=== PATIENT | male | born 1960 | race Caucasian/White ===

== ENCOUNTER 2017-11-25 19:03 | Inpatient (IN) | payer OTHER ==
--- NOTE | 2017-11-25 20:48 | HP ---
CIWA Score - CIWA Score Nausea/Vomitin Muscle Tremors: 2 Anxiety: 2 Agitation: 2 Paroxysmal Sweats: 1-Minimal Palms Moist Orientation: 1-Uncertain about Date Tacttile Disturbances: 1-Very Mild Itch/Numbness Auditory Disturbances: 1-Very Mild Visual Disturbances: 1-Very Mild Sensitivity Headache: 1-Very Mild CIWA-Ar Total Score: 14 Admission ROS BHS - HPI Chief Complaint: WITHDRAWAL SYMPTOMS Allergies/Adverse Reactions: Allergies Allergy/AdvReac Type Severity Reaction Status Date / Time No Known Allergies Allergy Verified 11/25/17 12:52 History of Present Illness: 57 Y.O. MAN WITH AN EXTENSIVE HISTORY OF ALCOHOL DEPENDENCE IS HERE SEEKING DETOX. PT. WAS EVALUATED AT THE ER EARLIER IN THE DAY FOR LEFT ANKLE SWELLING; HE WAS CLEARED TO COMPLETE DETOX. PT. HAS A BRACE TO HIS LEFT ANKLE AND IS USING A CANE FOR AMBULATION. Exam Limitations: Physical Impairment (USING A CANE FOR AMBULATION) - Ebola screening Have you traveled outside of the country in the last 21 days: No (N) Have you had contact with anyone from an Ebola affected area: No Do you have a fever: No - Review of Systems Constitutional: Chills, Loss of Appetite, Unintentional Wgt. Loss EENT: reports: Blurred Vision Respiratory: reports: Cough Cardiac: reports: No Symptoms Reported GI: reports: Diarrhea, Abdominal cramping : reports: No Symptoms Reported Musculoskeletal: reports: Other (LEFT FOOT PAIN) Neuro: reports: Headache Endocrine: reports: No Symptoms Reported Hematology: reports: No Symptoms Reported Psychiatric: reports: Depressed Other Systems: Reviewed and Negative Patient History - Patient Medical History Hx Anemia: No Hx Asthma: No Hx Chronic Obstructive Pulmonary Disease (COPD): No Hx Cancer: Yes (Throat Ca. Not on medication) Hx Cardiac Disorders: No Hx Congestive Heart Failure: No Hx Hypertension: Yes (non compliant with meds.) Hx Hypercholesterolemia: No Hx Pacemaker: No HX Cerebrovascular Accident: No Hx Seizures: No Hx Dementia: No Hx Diabetes: No Hx Gastrointestinal Disorders: Yes Hx Liver Disease: No Hx Genitourinary Disorders: No Hx Sexually Transmitted Disorders: No Hx Renal Disease (ESRD): No Hx Human Immunodeficiency Virus (HIV): No (Never tested) Hx Hepatitis C: No Hx Depression: Yes Hx Suicide Attempt: No Hx Bipolar Disorder: No Hx Schizophrenia: No - Patient Surgical History Past Surgical History: Yes Hx Neurologic Surgery: No Hx Cataract Extraction: No Hx Cardiac Surgery: No Hx Lung Surgery: No Hx Breast Surgery: No Hx Breast Biopsy: No Hx Abdominal Surgery: Yes (FOR CA. OF THE ESOPHAGUS X 5 IN 2008) Hx Appendectomy: No Hx Cholecystectomy: No Hx Genitourinary Surgery: No Hx Section: No Hx Orthopedic Surgery: No Anesthesia Reaction: No - PPD History Date: 06/19/17 Results: CXR PPD to be Administered?: No - Reproductive History Patient is a Female of Child Bearing Age (11 -55 yrs old): No - Smoking Cessation Smoking history: Never smoked Have you smoked in the past 12 months: No If you are a former smoker, when did you quit?: 2007 Hx Chewing Tobacco Use: No - Substance & Tx. History Hx Alcohol Use: Yes Substance Use Type: Alcohol Hx Substance Use Treatment: Yes - Substances Abused Alcohol Route: Oral Frequency: Daily Amount used: 2 PINTS OF LIQUOR Age of first use: 15 Date of Last Use: 11/24/17 Family Disease History - Family Disease History Family Disease History: Heart Disease: Mother (HTN) Admission Physical Exam S - Vital Signs Vital Signs: Last Vital Signs Temp Pulse Resp BP Pulse Ox 97.8 F 83 16 188/98 11/25/17 20:53 11/25/17 20:53 11/25/17 20:53 11/25/17 20:53 - Physical General Appearance: Yes: Disheveled HEENTM: Yes: Normocephalic, Other (MISSING TEETH) Respiratory: Yes: Lungs Clear, Normal Breath Sounds, No Respiratory Distress, No Accessory Muscle Use Neck: Yes: No masses,lesions,Nodules, Trachea in good position Breast: Yes: Breast Exam Deferred Cardiology: Yes: Regular Rhythm, Regular Rate Abdominal: Yes: Normal Bowel Sounds, Non Tender, Flat Genitourinary: Yes: Other (NO COMPLAINTS REPORTED) Back: Yes: Normal Inspection Musculoskeletal: Yes: Joint Stiffness, Joint swelling Extremities: Yes: Normal Inspection, Normal Range of Motion, Non-Tender Neurological: Yes: Alert, Normal Mood/Affect, Normal Response Integumentary: Yes: Normal Color, Dry, Warm Lymphatic: Yes: Within Normal Limits - Diagnostic (1) Alcohol dependence with uncomplicated withdrawal Current Visit: Yes Status: Chronic (2) Ankle pain, left Current Visit: Yes Status: Acute Qualifiers: Chronicity: unspecified Qualified Code(s): M25.572 - Pain in left ankle and joints of left foot (3) HTN (hypertension) Current Visit: Yes Status: Chronic Qualifiers: Hypertension type: unspecified Qualified Code(s): I10 - Essential (primary ) hypertension (4) Throat cancer Current Visit: Yes Status: Chronic (5) Weight loss Current Visit: Yes Status: Acute Cleared for Admission BHS - Detox or Rehab [facility] Level of Care: Medically Managed Detox Regimen/Protocol: Librium S Breath Alcohol Content Breath Alcohol Content: 0.205 Vital Signs - Vital Signs Vital Signs Refused: No Temperature: 97.8 F Temperature Source: Oral Pulse Rate: 83 Respiratory Rate: 16 Blood Pressure: 188/98 BP Location: Left Arm Blood Pressure Position: Sitting - Height Height: 5 ft 8 in - Weight Weight: 140 lb Weight Measurement Method: Estimated by Patient Body Mass Index (BMI): 21.2 Urine Drug Screen - Control Is Test Valid: Yes - Results Drug Screen Negative: Yes
[2017-11-25 20:53] VITALS: BMI 21.2
[2017-11-25] MEDS ORDERED: MAGNESIUM HYDROX 2400MG/30ML ORAL SUSPENSION 30 ML CUP PO PRN (20:57)
[2017-11-25] MEDS ORDERED: IBUPROFEN 400 MG TABLET (FP) PO PRN (20:57)
[2017-11-25] MEDS ORDERED: P-EPHED 60MG/TRIPROLIDI 2.5MG TABLET PO PRN (20:57)
[2017-11-25] MEDS ORDERED: MAGNESIUM CITRATE 300 ML BOTTLE PO PRN (20:57)
[2017-11-25] MEDS ORDERED: guaiFENesin/D-METHORPHAN HB 10 ML UNIT-DOSE CUPS PO PRN (20:57)
[2017-11-25] MEDS ORDERED: MAG HYDROX/AL HYDROX/SIMETH 30 ML UNIT-DOSE CUP PO PRN (20:57)
[2017-11-25] MEDS ORDERED: hydrOXYzine PAMOATE 50 MG CAPSULE (FP) PO PRN (20:57)
[2017-11-25] MEDS ORDERED: ACETAMINOPHEN 325 MG TABLET (FP) PO PRN (20:57)
[2017-11-25] MEDS ORDERED: chlordiazePOXIDE HCL 25 MG CAPSULE PO ONE (20:57)
[2017-11-25] MEDS ORDERED: MENTHOL/PHENOL 1 EACH UD MM PRN (20:57)
[2017-11-25] MEDS ORDERED: MELATONIN 5 MG TABLETS PO PRN (22:00)
[2017-11-25] MEDS: chlordiazePOXIDE HCL 25 MG CAPSULE PO SCH (23:00)
[2017-11-25] MEDS: THIAMINE HCL 100 MG TABLET (FP) PO SCH (23:01)
[2017-11-25] MEDS ORDERED: cloNIDine HCL 0.1 MG TABLET PO ONE (23:30)
[2017-11-26 00:07] LABS: URINE APPEARANCE CLEAR; URINE BILIRUBIN NEGATIVE (<2.0 mg/dL); URINE COLOR LTYELLOW; URINE GLUCOSE (UA) NEGATIVE (NEGATIVE); URINE KETONE NEGATIVE (NEGATIVE); URINE LEUK ESTERASE NEGATIVE (NEGATIVE); URINE NITRITE NEGATIVE (NEGATIVE); URINE PROTEIN NEGATIVE (NEGATIVE); URINE UROBILINOGEN NEGATIVE mg/dL (0.2-1.0)
[2017-11-26] MEDS: chlordiazePOXIDE HCL 25 MG CAPSULE PO SCH ×4 (06:00→22:28)
--- NOTE | 2017-11-26 09:51 | PN ---
S CIWA - CIWA Score Nausea/Vomitin Muscle Tremors: 3 Anxiety: 3 Agitation: 2 Paroxysmal Sweats: 1-Minimal Palms Moist Orientation: 0-Oriented Tacttile Disturbances: 1-Very Mild Itch/Numbness Auditory Disturbances: 1-Very Mild Visual Disturbances: 0-None Headache: 2-Mild CIWA-Ar Total Score: 16 BHS Progress Note (SOAP) Subjective: alert,irritable,anxious,interrupted sleep,tremor Objective: 11/26/17 09:55 Vital Signs Temperature 98.2 F 11/26/17 09:51 Pulse Rate 77 11/26/17 09:51 Respiratory Rate 20 11/26/17 09:51 Blood Pressure 145/84 11/26/17 09:51 O2 Sat by Pulse Oximetry (%) ekg nsr,normal ecg,qt/qtc 414/474 Laboratory Last Values Urine Color Ltyellow 11/25/17 22:00 Urine Appearance Clear 11/25/17 22:00 Urine pH 6.0 (5.0-8.0) 11/25/17 22:00 Ur Specific [place] 1.014 (1.001-1.035) 11/25/17 22:00 Urine Protein Negative (NEGATIVE) 11/25/17 22:00 Urine Glucose (UA) Negative (NEGATIVE) 11/25/17 22:00 Urine Ketones Negative (NEGATIVE) 11/25/17 22:00 Urine Blood Negative (NEGATIVE) 11/25/17 22:00 Urine Nitrite Negative (NEGATIVE) 11/25/17 22:00 Urine Bilirubin Negative (<2.0 mg/dL) 11/25/17 22:00 Urine Urobilinogen Negative mg/dL (0.2-1.0) 11/25/17 22:00 Ur Leukocyte Esterase Negative (NEGATIVE) 11/25/17 22:00 labs pending Assessment: 11/26/17 09:56 withdrawal symptom Plan: continue detox
--- NOTE | 2017-11-26 10:11 | CONSULT ---
[facility] Psychiatric Consult - Data Date of interview: 11/26/17 Admission source: [facility] Identifying data: 57 Y.O. MAN WITH AN EXTENSIVE HISTORY OF ALCOHOL DEPENDENCE IS HERE SEEKING DETOX. PT. WAS EVALUATED AT THE ER EARLIER IN THE DAY FOR LEFT ANKLE SWELLING; HE WAS CLEARED TO COMPLETE DETOX. PT. HAS A BRACE TO HIS LEFT ANKLE AND IS USING A CANE FOR AMBULATION. Substance Abuse History: - Smoking Cessation. Smoking history: Never smoked. Have you smoked in the past 12 months: No. If you are a former smoker, when did you quit?: 2007. Hx Chewing Tobacco Use: No. - Substance & Tx. History. Hx Alcohol Use: Yes. Substance Use Type: Alcohol. Hx Substance Use Treatment: Yes. - Substances Abused. Alcohol. Route: Oral. Frequency: Daily. Amount used: 2 PINTS OF LIQUOR. Age of first use: 15. Date of Last Use: Medical History: History of Esophagus and Throat Cancer, Weight loss, HTN, L.Ankle injury. Psychiatric History: Patient reports history of anxiety and deprtession, denies psychiatric hospitalization historty, reports no medications takinmg prior to admission. Denies suiocidal, homicidal history Physical/Sexual Abuse/Trauma History: Denies Additional Comment: Observation. Detox Unit Care Protocol Mental Status Exam - Mental Status Exam Alert and Oriented to: Person Cognitive Function: Fair Patient Appearance: Unkempt Mood: Sad Affect: Flat Patient Behavior: Sedated Speech Pattern: Delayed Voice Loudness: Mildly Soft/Quiet Thought Process: Circumstantial Thought Disorder: Being Controlled Hallucinations: Denies Suicidal Ideation: Denies Homicidal Ideation: Denies Insight/Judgement: Fair Sleep: Difficulty falling asleep Appetite: Weight loss Muscle strength/Tone: Mild Hypotonicity Gait/Station: Shuffling Additional Comments: Observation. Detox Unit Care Protocol Psychiatric Findings - Problem List ([place] 1, 2,3) (1) Ankle pain, left Current Visit: Yes Status: Acute Qualifiers: Chronicity: unspecified Qualified Code(s): M25.572 - Pain in left ankle and joints of left foot (2) Cancer of esophagus Current Visit: Yes Status: Acute (3) Weight loss Current Visit: Yes Status: Acute (4) Alcohol dependence with uncomplicated withdrawal Current Visit: Yes Status: Chronic (5) HTN (hypertension) Current Visit: Yes Status: Chronic Qualifiers: Hypertension type: unspecified Qualified Code(s): I10 - Essential (primary ) hypertension (6) Throat cancer Current Visit: Yes Status: Chronic (7) Substance-induced sleep disorder Current Visit: No Status: Acute (8) Xanax use disorder, mild, abuse Current Visit: No Status: Acute (9) Cannabis dependence Current Visit: No Status: Chronic (10) Substance induced mood disorder Current Visit: No Status: Chronic - Initial Treatment Plan Initial Treatment Plan: Observation. Detox Unit Care Protocol
[2017-11-26] MEDS: PRENATAL VITAMINS W/ FOLIC ACID TABLET (FP) PO SCH (12:14)
[2017-11-26] MEDS: chlordiazePOXIDE HCL 25 MG CAPSULE PO PRN ×2 (12:15→17:06)
[2017-11-26] MEDS: LOPERAMIDE HCL 2 MG CAPSULE PO PRN ×2 (17:06→23:25)
--- NOTE | 2017-11-26 20:14 | EKG ---
Test Reason : Blood Pressure : / mmHG Vent. Rate : 079 BPM Atrial Rate : 079 BPM P-R Int : 116 ms QRS Dur : 098 ms QT Int : 414 ms P-R-T Axes : 066 077 081 degrees QTc Int : 474 ms NORMAL SINUS RHYTHM NORMAL ECG WHEN COMPARED WITH ECG OF 25-NOV-2017 22:26, NO SIGNIFICANT CHANGE WAS FOUND Confirmed by ROSARIO FERNANDES MD ([id number]) on 11/26/2017 8:14:13 PM Referred By: Confirmed By:ROSARIO FERNANDES MD
--- NOTE | 2017-11-26 20:15 | EKG ---
Test Reason : Blood Pressure : / mmHG Vent. Rate : 081 BPM Atrial Rate : 081 BPM P-R Int : 106 ms QRS Dur : 088 ms QT Int : 390 ms P-R-T Axes : 069 076 077 degrees QTc Int : 453 ms SINUS RHYTHM WITH SHORT WI NONSPECIFIC ST ABNORMALITY ABNORMAL ECG WHEN COMPARED WITH ECG OF 18-JUN-2017 08:14, NO SIGNIFICANT CHANGE WAS FOUND Confirmed by ROSARIO FERNANDES MD ([id number]) on 11/26/2017 8:15:25 PM Referred By: Confirmed By:ROSARIO FERNANDES MD
[2017-11-26] MEDS: THIAMINE HCL 100 MG TABLET (FP) PO SCH (22:30)
[2017-11-27] MEDS: chlordiazePOXIDE HCL 25 MG CAPSULE PO SCH ×3 (05:42→18:11)
--- NOTE | 2017-11-27 09:52 | PN ---
S CIWA - CIWA Score Nausea/Vomitin Muscle Tremors: 3 Anxiety: 2 Agitation: 2 Paroxysmal Sweats: 1-Minimal Palms Moist Orientation: 0-Oriented Tacttile Disturbances: 1-Very Mild Itch/Numbness Auditory Disturbances: 1-Very Mild Visual Disturbances: 0-None Headache: 2-Mild CIWA-Ar Total Score: 15 BHS Progress Note (SOAP) Subjective: alert,irritable,anxious,interrupted sleep,tremor,left ankle swelling is less on aircast Objective: 11/27/17 09:48 Vital Signs Temperature 98.4 F 11/27/17 09:24 Pulse Rate 96 H 11/27/17 09:24 Respiratory Rate 19 11/27/17 09:24 Blood Pressure 146/69 11/27/17 09:24 O2 Sat by Pulse Oximetry (%) Laboratory Last Values Urine Color Ltyellow 11/25/17 22:00 Urine Appearance Clear 11/25/17 22:00 Urine pH 6.0 (5.0-8.0) 11/25/17 22:00 Ur Specific [place] 1.014 (1.001-1.035) 11/25/17 22:00 Urine Protein Negative (NEGATIVE) 11/25/17 22:00 Urine Glucose (UA) Negative (NEGATIVE) 11/25/17 22:00 Urine Ketones Negative (NEGATIVE) 11/25/17 22:00 Urine Blood Negative (NEGATIVE) 11/25/17 22:00 Urine Nitrite Negative (NEGATIVE) 11/25/17 22:00 Urine Bilirubin Negative (<2.0 mg/dL) 11/25/17 22:00 Urine Urobilinogen Negative mg/dL (0.2-1.0) 11/25/17 22:00 Ur Leukocyte Esterase Negative (NEGATIVE) 11/25/17 22:00 RPR Titer Nonreactive (NONREACTIVE) 11/26/17 06:20 Assessment: 11/27/17 09:51 withdrawal symptom Plan: continue detox,cbc,cmp,inr in am
--- NOTE | 2017-11-27 10:44 | PN ---
BHS CIWA - CIWA Score Nausea/Vomitin Muscle Tremors: 3 Anxiety: 3 Agitation: 2 Paroxysmal Sweats: 1-Minimal Palms Moist Orientation: 0-Oriented Tacttile Disturbances: 1-Very Mild Itch/Numbness Auditory Disturbances: 1-Very Mild Visual Disturbances: 0-None Headache: 2-Mild CIWA-Ar Total Score: 16
[2017-11-27] MEDS: PRENATAL VITAMINS W/ FOLIC ACID TABLET (FP) PO SCH (10:58)
[2017-11-27] MEDS: THIAMINE HCL 100 MG TABLET (FP) PO SCH (22:09)
[2017-11-27] MEDS: chlordiazePOXIDE 5 MG CAPSULE PO SCH (22:09)
[2017-11-28] MEDS: chlordiazePOXIDE 5 MG CAPSULE PO SCH ×3 (06:08→18:12)
[2017-11-28 10:10] LABS: HEMATOCRIT 30.7 % (35.4-49); HEMOGLOBIN 9.9 GM/dL (11.7-16.9); MCH 27.6 pg (25.7-33.7); MCHC 32.4 g/dl (32.0-35.9); MEAN CELL VOLUME 85.1 fl (80-96); PLATELET COUNT 188 K/MM3 (134-434); RDW 16.3 % (11.9-15.9); WHITE BLOOD COUNT 6.7 K/mm3 (4.0-10.0)
[2017-11-28 10:16] LABS: CHLORIDE 108 mmol/L (98-107); POTASSIUM 3.2 mmol/L (3.5-5.1); SODIUM 145 mmol/L (136-145)
[2017-11-28 10:37] LABS: ALBUMIN 2.9 g/dl (3.4-5.0); ALK PHOS 111 U/L (45-117); ANION GAP 9 MMOL/L (8-16); BILIRUBIN,TOTAL 0.4 mg/dL (0.2-1.0); BLOOD UREA NITROGEN 9 mg/dL (7-18); CALCIUM 8.4 mg/dL (8.5-10.1); CO2 28 mmol/L (21-32); CREATININE 0.6 mg/dL (0.7-1.3); GLUCOSE,RANDOM 85 mg/dL (74-106); SGOT/AST 14 U/L (15-37); SGPT/ALT 11 U/L (12-78); TOT PROT 6.2 g/dl (6.4-8.2)
--- NOTE | 2017-11-28 10:39 | PN ---
S Progress Note (SOAP) Subjective: alert,irritable,anxious,interrupted sleep Objective: 11/28/17 10:38 Vital Signs Temperature 98.0 F 11/28/17 09:56 Pulse Rate 94 H 11/28/17 09:56 Respiratory Rate 16 11/28/17 09:56 Blood Pressure 134/77 11/28/17 09:56 O2 Sat by Pulse Oximetry (%) Assessment: 11/28/17 10:38 withdrawal symptom Plan: continue detox,discharge in am
[2017-11-28] MEDS: PRENATAL VITAMINS W/ FOLIC ACID TABLET (FP) PO SCH (10:59)
[2017-11-28] MEDS: THIAMINE HCL 100 MG TABLET (FP) PO SCH (22:18)
[2017-11-28] MEDS: chlordiazePOXIDE HCL 10 MG CAPSULE PO SCH (22:18)
[2017-11-28] MEDS: LOPERAMIDE HCL 2 MG CAPSULE PO PRN (22:21)
[2017-11-29] MEDS: chlordiazePOXIDE HCL 10 MG CAPSULE PO SCH ×2 (05:43→11:10)
[2017-11-29 09:19] VITALS: BP 121/87; PULSE 77; TEMP 98.2
[2017-11-29] MEDS: PRENATAL VITAMINS W/ FOLIC ACID TABLET (FP) PO SCH (11:10)
--- NOTE | 2017-11-29 11:29 | DS ---
[facility] Detox Discharge Summary Admission Date: 11/25/17 Discharge Date: 11/29/17 - History Present History: Alcohol Dependence Pertinent Past History: Throat cancer, HTN - Physical Exam Results Vital Signs: Vital Signs Temperature 98.2 F 11/29/17 09:19 Pulse Rate 77 11/29/17 09:19 Respiratory Rate 18 11/29/17 09:19 Blood Pressure 121/87 11/29/17 09:19 O2 Sat by Pulse Oximetry (%) Pertinent Admission Physical Exam Findings: Withdrawal sx Laboratory Last Values WBC 6.7 K/mm3 (4.0-10.0) 11/28/17 07:00 RBC 3.60 M/mm3 (4.00-5.60) L 11/28/17 07:00 Hgb 9.9 GM/dL (11.7-16.9) L 11/28/17 07:00 Hct 30.7 % (35.4-49) L 11/28/17 07:00 MCV 85.1 fl (80-96) 11/28/17 07:00 MCH 27.6 pg (25.7-33.7) 11/28/17 07:00 MCHC 32.4 g/dl (32.0-35.9) 11/28/17 07:00 RDW 16.3 % (11.9-15.9) H 11/28/17 07:00 Plt Count 188 K/MM3 (134-434) D 11/28/17 07:00 MPV 8.0 fl (7.5-11.1) 11/28/17 07:00 Sodium 145 mmol/L (136-145) 11/28/17 07:00 Potassium 3.2 mmol/L (3.5-5.1) L 11/28/17 07:00 Chloride 108 mmol/L (98-107) H 11/28/17 07:00 Carbon Dioxide 28 mmol/L (21-32) 11/28/17 07:00 Anion Gap 9 MMOL/L (8-16) 11/28/17 07:00 BUN 9 mg/dL (7-18) 11/28/17 07:00 Creatinine 0.6 mg/dL (0.7-1.3) L 11/28/17 07:00 Creat Clearance w eGFR > 60 (>60) 11/28/17 07:00 Random Glucose 85 mg/dL (74-106) 11/28/17 07:00 Calcium 8.4 mg/dL (8.5-10.1) L 11/28/17 07:00 Total Bilirubin 0.4 mg/dL (0.2-1.0) 11/28/17 07:00 AST 14 U/L (15-37) L D 11/28/17 07:00 ALT 11 U/L (12-78) L D 11/28/17 07:00 Alkaline Phosphatase 111 U/L (45-117) D 11/28/17 07:00 Total Protein 6.2 g/dl (6.4-8.2) L 11/28/17 07:00 Albumin 2.9 g/dl (3.4-5.0) L 11/28/17 07:00 Urine Color Ltyellow 11/25/17 22:00 Urine Appearance Clear 11/25/17 22:00 Urine pH 6.0 (5.0-8.0) 11/25/17 22:00 Ur Specific [place] 1.014 (1.001-1.035) 11/25/17 22:00 Urine Protein Negative (NEGATIVE) 11/25/17 22:00 Urine Glucose (UA) Negative (NEGATIVE) 11/25/17 22:00 Urine Ketones Negative (NEGATIVE) 11/25/17 22:00 Urine Blood Negative (NEGATIVE) 11/25/17 22:00 Urine Nitrite Negative (NEGATIVE) 11/25/17 22:00 Urine Bilirubin Negative (<2.0 mg/dL) 11/25/17 22:00 Urine Urobilinogen Negative mg/dL (0.2-1.0) 11/25/17 22:00 Ur Leukocyte Esterase Negative (NEGATIVE) 11/25/17 22:00 RPR Titer Nonreactive (NONREACTIVE) 11/28/17 07:00 Labs noted - Treatment Hospital Course: Detox Protocol Followed, Detoxed Safely, Responded well, Discharged Condition Good - Medication Discharge Medications: Ambulatory Orders NK [No Known Home Medication] 11/25/17 - Diagnosis (1) Alcohol dependence with uncomplicated withdrawal Current Visit: Yes Status: Chronic (2) HTN (hypertension) Current Visit: Yes Status: Chronic Qualifiers: Hypertension type: unspecified Qualified Code(s): I10 - Essential (primary ) hypertension (3) Throat cancer Current Visit: Yes Status: Chronic (4) Insomnia Current Visit: No Status: Acute Qualifiers: Insomnia type: unspecified Qualified Code(s): G47.00 - Insomnia, unspecified - AMA Did Patient Leave Against Medical Advice: No
== END 2017-11-29 12:05 | disposition home or self-care (01) | DRG 775 ==
LOC: YASAS 19:03 → Y6N 21:44
PROVIDERS: ADMIT Surgery; ATTEND Surgery
PROC: HZ2ZZZZ Detoxification Services for Substance Abuse Treatment (ICD-10-PCS; principal; 2017-11-25)
DX: F10.230 Alcohol dependence with withdrawal, uncomplicated (principal); F13.10 Sedative, hypnotic or anxiolytic abuse, uncomplicated; F12.20 Cannabis dependence, uncomplicated; F19.282 Other psychoactive substance dependence with psychoactive substance-induced sleep disorder; F19.24 Other psychoactive substance dependence with psychoactive substance-induced mood disorder; I10 Essential (primary) hypertension; Z85.01 Personal history of malignant neoplasm of esophagus; Z85.819 Personal history of malignant neoplasm of unspecified site of lip, oral cavity, and pharynx; Z91.14 Patient's other noncompliance with medication regimen; Z87.898 Personal history of other specified conditions; Z59.0 Homelessness
CPT/HCPCS: 36415; 80053; 81003; 85027; 86593; 93005; 93010; J0735